=== PATIENT | female | born 1980 | race Caucasian/White ===

== ENCOUNTER 2019-04-05 00:43 | Emergency (ER) | payer SELFPAY ==
[~2019-04-05] VITALS: Ht 170.2 cm; Wt 72.6 kg
[2019-04-05 00:51] VITALS: BP 119/83
--- NOTE | 2019-04-05 00:53 | NUR ---
PT AMBULATED TO BED 5. PROVIDING URINE.
[2019-04-05] MEDS ORDERED: KETOROLAC 60 MG/2 ML VIAL IM ONE (01:05)
--- NOTE | 2019-04-05 01:08 | NUR ---
LAB AT BEDSIDE.
[2019-04-05 01:15] LABS: BASOPHILS % (AUTO) 0.3 % (0.0-2.0); EOSINOPHILS # (AUTO) 0.1 K/uL (0-0.4); EOSINOPHILS % (AUTO) 1.4 % (0.0-4.0); HEMATOCRIT 42.1 % (36-48); HEMOGLOBIN 13.8 g/dL (12.0-16.0); LYMPHOCYTES # (AUTO) 2.6 K/uL (2.5-16.5); LYMPHOCYTES % (AUTO) 37.7 % (20.5-51.1); MEAN CORPUSCULAR HEMOGLOBIN 29 pg (27-31); MEAN CORPUSCULAR HGB CONC 33 g/dL (33-37); MEAN CORPUSCULAR VOLUME 87.4 fL (80-94); MONOCYTES # (AUTO) 0.5 K/uL (0.8-1.0); MONOCYTES % (AUTO) 7.6 % (1.7-9.3); NEUTROPHILS # (AUTO) 3.6 K/uL (1.8-7.7); PLATELET COUNT (AUTO) 156 K/uL (140-450); RED BLOOD CELL COUNT(AUTO) 4.82 MIL/uL (4.20-5.40); RED CELL DISTRIBUTION WIDTH 13.3 % (11.6-13.7); WHITE BLOOD COUNT (AUTO) 6.8 K/uL (4.8-10.8)
--- NOTE | 2019-04-05 01:15 | NUR ---
38 YO F BIB SELF AND BOYFRIEND PRESENTS TO ED C/O 05/05 RIGHT SIDE FLANK PAIN X 3 DAYS. PT C/O NAUSEA, NO VOMITING. DENIES PAIN OR BURNING WITH URINATION OR FEVER. -- PT AWAKE, ALERT, CALM, COOPERATIVE. ANSWERING QUESTIONS APPROPRIATELY. BEHAVIOR AGE APPROPRIATE. --SKIN PINK, WARM, DRY. BREATHING EVEN, UNLABORED. PMH-- DENIES RX-- TYLENOL AT 2000
[2019-04-05 01:31] LABS: ALBUMIN 4.1 g/dL (3.4-5.0); ANION GAP 16.8 (8-16); CREATININE 0.9 mg/dL (0.6-1.3); POTASSIUM 3.8 mmol/L (3.5-5.1); TOTAL BILIRUBIN 0.7 mg/dL (0.0-1.0)
--- NOTE | 2019-04-05 03:19 | NUR ---
DR. HU AT BEDSIDE.
[2019-04-05 03:31] VITALS: BP 116/79
--- NOTE | 2019-04-05 03:31 | NUR ---
Patient discharged with v/s stable. Written and verbal after care instructions given and explained. Patient alert, oriented and verbalized understanding of instructions. Ambulatory with steady gait. All questions addressed prior to discharge. ID band removed. Patient advised to follow up with PMD. Rx of Shafter and Motrin given. Patient educated on indication of medication including possible reaction and side effects. Opportunity to ask questions provided and answered.
== END 2019-04-05 03:31 | disposition home or self-care (01) ==
LOC: MED 00:43
DX: R10.11 Right upper quadrant pain (principal)
CPT/HCPCS: 36415; 80053; 81002; 81025; 83690; 85025; 96372; 99283; J1885

== ENCOUNTER 2021-04-01 18:04 | Emergency (ER) | payer SELFPAY ==
[~2021-04-01] VITALS: Ht 167.6 cm; Wt 77.1 kg
[2021-04-01 18:18] VITALS: BP 120/77
--- NOTE | 2021-04-01 18:24 | NUR ---
PT AMBULATED TO BED
--- NOTE | 2021-04-01 18:45 | NUR ---
LABS WERE DRAWN FROM IV AND GIVEN TO PHLEB.
--- NOTE | 2021-04-01 18:48 | NUR ---
40 Y/O F BIB SELF FROM HOME, PATIENT PRESENTS TO ED WITH L CHEST PAIN THAT STARTED YESTERDAY AND WORSENED TODAY, PAIN COMES AND GOES, "POKING SENSATION WHILE EATING AND DRINKING" AND RADIATES TO MID BACK. DENIES N/V/D; SKIN IS PINK/WARM/DRY; AAOX4 WITH EVEN AND STEADY GAIT; LUNGS CLEAR BL; HR EVEN AND REGULAR; PT DENIES ANY FEVER, SOB, OR COUGH AT THIS TIME; PATIENT STATES PAIN OF 6/10 AT THIS TIME; VSS; PATIENT POSITIONED FOR COMFORT; HOB ELEVATED; BEDRAILS UP X2; BED DOWN. ER MD MADE AWARE OF PT STATUS. PMH: SVT, CARDIAC ABLASION CHELSIE
--- NOTE | 2021-04-01 18:55 | NUR ---
XRAY AT BEDSIDE
[2021-04-01 18:56] LABS: BASOPHILS % (AUTO) 0.4 % (0.0-2.0); EOSINOPHILS # (AUTO) 0.1 K/uL (0-0.4); HEMATOCRIT 42.2 % (36-48); HEMOGLOBIN 13.9 g/dL (12.0-16.0); LYMPHOCYTES # (AUTO) 2.5 K/uL (2.5-16.5); LYMPHOCYTES % (AUTO) 30.1 % (20.5-51.1); MEAN CORPUSCULAR HEMOGLOBIN 28 pg (27-31); MEAN CORPUSCULAR HGB CONC 33 g/dL (33-37); MEAN CORPUSCULAR VOLUME 86.3 fL (80-94); MONOCYTES # (AUTO) 0.7 K/uL (0.8-1.0); MONOCYTES % (AUTO) 8.3 % (1.7-9.3); NEUTROPHILS % (AUTO) 60.2 % (42.2-75.2); PLATELET COUNT (AUTO) 175 K/uL (140-450); RED BLOOD CELL COUNT(AUTO) 4.89 MIL/uL (4.20-5.40); RED CELL DISTRIBUTION WIDTH 14.1 % (11.6-13.7); WHITE BLOOD COUNT (AUTO) 8.3 K/uL (4.8-10.8)
[2021-04-01 19:10] LABS: ALBUMIN 4.4 g/dL (3.4-5.0); ANION GAP 11.9 (8-16); CARBON DIOXIDE 28.3 mmol/L (21-32); CREATININE 0.9 mg/dL (0.6-1.3); POTASSIUM 3.2 mmol/L (3.5-5.1); TOTAL BILIRUBIN 0.4 mg/dL (0.0-1.0)
--- NOTE | 2021-04-01 19:14 | NUR ---
Received report from Bridget AVILA for continuity of care.
--- NOTE | 2021-04-01 19:14 | NUR ---
Pt report given to ROBYN RN. Transfer of care at this time.
--- NOTE | 2021-04-01 19:20 | NUR ---
Patient appears to be resting comfortably in bed. VSS. AAOx4. Semi fowlers. Respirations even and unlabored. Safety measures in place. Will continue to monitor patient
[2021-04-01] MEDS ORDERED: POTASSIUM CHLORIDE 10 MEQ TABER PO ONE (19:50)
--- NOTE | 2021-04-01 20:33 | NUR ---
IV removed, catheter intact and site benign. Applied folded 4x4 gauze and tape to stop bleeding.
[2021-04-01 20:34] VITALS: BP 108/62
--- NOTE | 2021-04-01 20:34 | NUR ---
Patient discharged with v/s stable. Written and verbal after care instructions given and explained. Patient verbalized understanding. Ambulatory with steady gait. ID band removed. All questions addressed prior to discharge. Advised to follow up with PMD.
== END 2021-04-01 20:34 | disposition home or self-care (01) ==
LOC: MED 18:04
DX: R07.9 Chest pain, unspecified (principal)
CPT/HCPCS: 36415; 71045; 80053; 84484; 85025; 93005; 99285